=== PATIENT | female | born 1990 | race Two or more races ===

== ENCOUNTER 2021-10-05 08:15 | Inpatient (IN) | payer SELFPAY ==
[~2021-10-05] VITALS: Ht 142.2 cm; Wt 63.6 kg
[2021-10-05] MEDS ORDERED: LIDOCAINE 1% PF 30 ML VIAL. INJ PRN (08:30)
[2021-10-05] MEDS ORDERED: BUTORPHANOL 2 MG/ML VIAL. IVP PRN ×2 (08:30)
[2021-10-05] MEDS ORDERED: 0.9 % SODIUM CHLORIDE 10 ML DISP.SYRIN. IV PRN ×2 (08:30→16:30)
[2021-10-05] MEDS ORDERED: OXYTOCIN 30 UNIT/500 ML PREMIX 500 ML IV PRN ×3 (08:30→16:30)
[2021-10-05] MEDS ORDERED: TERBUTALINE 1 MG/ML VIAL. SQ PRN (08:30)
[2021-10-05 08:34] VITALS: BP 124/90
--- NOTE | 2021-10-05 08:48 | PDOC1 ---
DIRECTOR OF BUSINESS SYSTEMS H&P Date of Admission: Date of Admission: October 05, 2021 at 08:15 History of Present Illness: EDC: 10/09/21 LMP: 01/02/21 31y @ 39.3 by L=24 presents for scheduled indxn. The pts is complicated by persistent mild bilateral hydronephrosis PMH: Denies PSH: Denies Meds: PNV All: NKDA OBHx: TSVD x 2, SAB x 1 SH: no tob, no etOH FH: DM Allergies: Coded Allergies: No Known Drug Allergies (Unverified , 10/05/21) Physical Exam: PE: GENERAL: No apparent distress. Alert and oriented. HEENT: Head normocephalic, atraumatic. NECK: Supple LUNGS: Clear to auscultation. HEART: RRR, S1, S2 present, pulses intact ABDOMEN: Soft, positive bowel sounds. EXTREMITIES: No cyanosis or edema. NEUROLOGIC: Normal speech, normal tone PSYCHIATRIC: Normal affect, normal mood. SKIN: No ulceration. FHT: 140s +acels/no decels/mLTV Amity: 2 min SVE: 50/-2 Assessment & Plan: A/P 31y @ 39.3 by L=24 1.) Indxn on Pit 2.) JA[facility]IE [place], records reviewed 3.) Bilateral hydronephrosis - mild (35 mm on the right, 39 mm on the lef t), will make peds aware at delivery, may need imaging after delivery 4.) Elevated BP first BP mild 5.) TDAP given 08/07/21 6.) Covid vaccine #1 08/18/21 7.) DPS - [facility] consent 09/17/21, considering interval BTL 8.) Fetus cat I FHT 9.) GBS pos on PCN TAN ASHFORD MD October 05, 2021 08:48
[2021-10-05] MEDS ORDERED: PENICILLIN G K 5,000,000 UNIT in IV DEXTROSE 5% 100ML 100 ML IV ONE (09:00)
[2021-10-05] MEDS: IV RINGERS,LACTATED 1000ML 1,000 ML IV SCH ×2 (09:19→13:21)
[2021-10-05 11:08] LABS: BACTERIA,URINE FEW /HPF (0-FEW); RBC,URINE 0 /HPF (0-2)
[2021-10-05] MEDS ORDERED: PENICILLIN G K 2,500,000 UNIT in IV DEXTROSE 5% 50 ML IV SCH (13:00)
[2021-10-05] MEDS ORDERED: ZOLPIDEM 5 MG TABLET. PO PRN (16:30)
[2021-10-05] MEDS ORDERED: diphenhydrAMINE HCL 25 MG CAPSULE PO PRN (16:30)
[2021-10-05] MEDS ORDERED: MAGNESIUM HYDROXIDE 2,400 MG/30 ML ORAL.SUSP. PO PRN (16:30)
[2021-10-05] MEDS ORDERED: oxyCODONE/APAP 5/325 1 TAB TABLET PO PRN (16:30)
[2021-10-05] MEDS ORDERED: PHENYLEPH/MINERAL OIL/PETROLAT RECTAL OINTMENT TUBE. RC PRN (16:30)
[2021-10-05] MEDS ORDERED: TDaP (BOOSTRIX) per PROTOCOL. MC PRN (16:30)
[2021-10-05] MEDS ORDERED: SIMETHICONE 80 MG TAB.CHEW PO PRN (16:30)
[2021-10-05] MEDS ORDERED: ACETAMINOPHEN 325 MG TABLET. PO PRN (16:30)
[2021-10-05] MEDS ORDERED: HYDROCORTISONE 1% TOPICAL OINTMENT 30GM TUBE. TP PRN (16:30)
[2021-10-05] MEDS ORDERED: BENZOCAINE 20% TOPICAL AEROSOL SPRAY 57GM CAN. TP PRN (16:30)
[2021-10-05] MEDS ORDERED: MMR per PROTOCOL. MC PRN (16:30)
[2021-10-05] MEDS ORDERED: MAG HYDROX/ALUMINUM HYD/SIMETH 30 ML ORAL.SUSP PO PRN (16:30)
--- NOTE | 2021-10-05 16:30 | PDOC4 ---
VAGINAL DELIVERY DATE DATE: 10/05/21 TIME: 16:30 TIME Patient delivered a viable female over intact perineum at 1619. Wt 7 lb 0 oz. Apgars 8/9. Placenta delivered spontaneously, intact with 3VC. No lacerations noted. Good hemostasis noted. 20 U of Pit given with IVF. EBL 300 cc. WEIGHT Weight [ ] TAN ASHFORD MD October 05, 2021 16:30
[2021-10-05 16:34] LABS: BASO % 1 % (0-3); EOS % 1 % (0-3); HEMATOCRIT 36.8 % (36.0-47.0); HEMOGLOBIN 12.2 g/dL (12.0-15.5); LYMPH # 1.6 x10^3/uL (1.0-4.8); LYMPH % 28 % (24-48); MEAN CORPUSCULAR HEMOGLOBIN 32 pg (25-35); MEAN CORPUSCULAR HGB CONC 33 g/dL (31-37); MEAN CORPUSCULAR VOLUME 95 fL (79-100); MONO # 0.5 x10^3/uL (0.0-1.1); MONO % 8 % (0-9); NEUT # 3.7 x10^3/uL (1.8-7.7); NEUT % 63 % (31-73); PLATELET COUNT 157 x10^3/uL (140-400); RED BLOOD COUNT 3.88 x10^6/uL (3.50-5.40); WHITE BLOOD COUNT 5.8 x10^3/uL (4.0-11.0)
[2021-10-05 20:10] VITALS: BP 113/68
[2021-10-06] MEDS: IBUPROFEN 400 MG TABLET. PO PRN ×3 (00:26→18:33)
[2021-10-06 00:30] VITALS: BP 111/62
[2021-10-06 06:17] VITALS: BP 97/56
[2021-10-06 07:45] VITALS: BP 104/62
[2021-10-06] MEDS ORDERED: FERROUS SULFATE 325 MG TABLET. PO SCH (08:00)
[2021-10-06 08:07] LABS: HEMOGLOBIN 12.3 g/dL (12.0-15.5); RED BLOOD COUNT 3.87 x10^6/uL (3.50-5.40); RED CELL DISTRIBUTION WIDTH 14.8 % (11.5-14.5); WHITE BLOOD COUNT 8.1 x10^3/uL (4.0-11.0)
[2021-10-06] MEDS: DOCUSATE SODIUM 100 MG CAPSULE. PO PRN ×2 (08:35→18:33)
[2021-10-06] MEDS: PRENATAL MULTIVITAMIN TABLET. PO SCH (08:35)
[2021-10-06 12:00] VITALS: BP 120/60
[2021-10-06 16:45] VITALS: BP 110/71
--- NOTE | 2021-10-06 17:32 | PDOC ---
CAREER TECHNICAL EDUCATION TEACHER PROGRESS NOTE Date of Service: DATE: 10/06/21 TIME: 17:30 Subjective: Doing well. , Tolerates activity, diet, and voiding without difficulty. Otherwise denies complaints. Objective: Objective: FF@U/1, scant lochia. Vital Signs: Vital Signs Date Time Temp Pulse Resp B/P (MAP) Pulse Ox O2 Delivery O2 Flow Rate FiO2 10/05/21 08:34 97.7 94 18 124/90 (101) 98 Room Air 97.7 Vital Signs Date Time Temp Pulse Resp B/P (MAP) Pulse Ox O2 Delivery O2 Flow Rate FiO2 10/06/21 16:45 97.7 81 18 110/71 (84) 99 Room Air 97.7 Labs: Laboratory Tests Test 10/06/21 07:30 White Blood Count 8.1 x10^3/uL (4.0-11.0) Red Blood Count 3.87 x10^6/uL (3.50-5.40) Hemoglobin 12.3 g/dL (12.0-15.5) Hematocrit 37.0 % (36.0-47.0) Mean Corpuscular Volume 96 fL (79-100) Mean Corpuscular Hemoglobin 32 pg (25-35) Mean Corpuscular Hemoglobin Concent 33 g/dL (31-37) Red Cell Distribution Width 14.8 % (11.5-14.5) H Platelet Count 188 x10^3/uL (140-400) Laboratory Tests 10/06/21 07:30 Laboratory Tests 10/06/21 07:30 Physical Exam: GENERAL: No apparent distress. Alert and oriented. HEENT: Head normocephalic, atraumatic. NECK: Supple LUNGS: Clear to auscultation. HEART: RRR, S1, S2 present, pulses intact ABDOMEN: Soft, positive bowel sounds. EXTREMITIES: No cyanosis or edema. NEUROLOGIC: Normal speech, normal tone PSYCHIATRIC: Normal affect, normal mood. SKIN: No ulceration. Assessment & Plan: PPD#1 s/p . Routine PP care. Anticipate d/c home tomorrow. YAMIL DOLAN CNM October 06, 2021 17:32
[2021-10-07 00:35] VITALS: BP 116/70
[2021-10-07 05:14] VITALS: BP 104/58
[2021-10-07] MEDS: IBUPROFEN 400 MG TABLET. PO PRN ×2 (06:02→11:50)
[2021-10-07 08:05] VITALS: BP 114/71
[2021-10-07] MEDS ORDERED: IBUP-1060 PO (08:22)
[2021-10-07] MEDS ORDERED: DOCU-109 PO (08:22)
--- NOTE | 2021-10-07 09:38 | PDOC ---
HIDES SOAKER PROGRESS NOTE Date of Service: DATE: 10/07/21 TIME: 09:38 Subjective: Pt with good pain control. Amira PO. Voiding. Minimal lochia. Objective: Vital Signs: Vital Signs Date Time Temp Pulse Resp B/P (MAP) Pulse Ox O2 Delivery O2 Flow Rate FiO2 10/06/21 07:45 97.7 77 16 104/62 (76) Room Air 97.7 10/06/21 16:45 99 Vital Signs Date Time Temp Pulse Resp B/P (MAP) Pulse Ox O2 Delivery O2 Flow Rate FiO2 10/07/21 08:05 98.0 83 16 114/71 (85) 100 Room Air 98.0 Physical Exam: GENERAL: No apparent distress. Alert and oriented. HEENT: Head normocephalic, atraumatic. NECK: Supple LUNGS: Clear to auscultation. HEART: RRR, S1, S2 present, pulses intact ABDOMEN: Soft, positive bowel sounds. EXTREMITIES: No cyanosis or edema. NEUROLOGIC: Normal speech, normal tone PSYCHIATRIC: Normal affect, normal mood. SKIN: No ulceration. FFNT below umb No C/C/E Assessment & Plan: A/P 31y PPD #2 s/p 1.) PO doing well 2.) Mild bilateral hydronephrosis scheduled for out pt renal u/s at [facility] 3.) Hgb 12.2 -> 12.3 4.) TDAP given 08/07/21 5.) Covid vaccine #1 08/18/21 6.) DPS - [facility]INT[facility] consent 09/17/21, considering interval BTL 7.) D/c home TAN ASHFORD MD October 07, 2021 09:38
--- NOTE | 2021-10-07 11:16 | DS ---
DATE OF DISCHARGE: 10/07/2021 ADMISSION DIAGNOSES: 1. Intrauterine at 39 weeks and 3 days by last menstrual period equal to a 24-week ultrasound. 2. Induction of labor. 3. Transfer of care from [facility]. 4. Mild bilateral hydronephrosis. 5. Status post Tdap. 6. Desires permanent sterilization, but Medicaid consent not sign until 09/17/2021, so not matured. 7. Group B Streptococcus positive. DISCHARGE DIAGNOSES: 1. Intrauterine at 39 weeks and 3 days by last menstrual period equal to a 24-week ultrasound. 2. Induction of labor. 3. Transfer of care from [facility]. 4. Mild bilateral hydronephrosis. 5. Status post Tdap. 6. Desires permanent sterilization, but Medicaid consent not sign until 09/17/2021, so not matured. 7. Group B Streptococcus positive. PROCEDURES: Spontaneous vaginal delivery. BRIEF HOSPITAL COURSE: The patient is a 31-year-old 4, para 2-0-1-2, who presented to Labor and Delivery at 39 weeks and 3 days by LMP equal to 24-week ultrasound for scheduled induction. The patient's had been complicated by persistent mild hydronephrosis. The patient was ultimately started on Pitocin and delivered later that afternoon by vaginal delivery. See delivery note for full detail. By day #2, the patient was meeting discharge criteria and subsequently discharged home. The baby was set up for outpatient renal ultrasound at [facility], the followup on the hydronephrosis. The patient's hemoglobin was 12.2 at admission and after delivery, it was found to be 12.3. DISCHARGE INSTRUCTIONS: The patient was told not to lift anything greater than 20 pounds, have pelvic rest for 6 weeks. CALL IF: The patient was to call if she had fevers, chills, nausea, vomiting, abdominal pain, or any additional questions or concerns. FOLLOWUP APPOINTMENT: The patient was to follow up on 11/17/2021 at 10:00 a.m. at [facility] for her visit. DISCHARGE MEDICATIONS: The patient was given a prescription for Motrin 800 mg, 30 pills and Colace 100 mg, 30 pills. KAYLIE/STEPH DR: May TID: [id number] [facility]
[2021-10-07] MEDS: DOCUSATE SODIUM 100 MG CAPSULE. PO PRN (11:49)
[2021-10-07] MEDS: PRENATAL MULTIVITAMIN TABLET. PO SCH (11:50)
[2021-10-07 14:25] VITALS: BP 101/54
[2021-10-07 18:05] VITALS: BP 108/74
--- NOTE | 2021-10-07 18:22 | NUR ---
Pt. d/c to home per order. No questions verbalized over d/c instructions at this time. Pt. to f/u at [facility] in 6 weeks.
== END 2021-10-07 18:22 | disposition home or self-care (01) | DRG 806 ==
LOC: 3 SO LND 08:15 → OBSVTOIN 16:19 → 3 SO LND 20:25
PROVIDERS: ADMIT Obstetrics & Gynecology; ATTEND Obstetrics & Gynecology
PROC: 10E0XZZ Delivery of Products of Conception, External Approach (ICD-10-PCS; principal; 2021-10-05)
DX: O99.824 Streptococcus B carrier state complicating childbirth (principal); N13.39 Other hydronephrosis; Z37.0 Single live birth; Z3A.39 39 weeks gestation of pregnancy; Z83.3 Family history of diabetes mellitus; O99.892 Other specified diseases and conditions complicating childbirth
CPT/HCPCS: 36415; 81001; 85025; 85027; 86592; 86850; 86900; 86901; 87426; G0378; G0379; J0595; J2540; J2590; J7060; J7120; U0003